=== PATIENT | male | born 1960 | race Caucasian/White ===

== ENCOUNTER 2018-05-30 09:43 | Day surgery (SDC) | payer OTHER ==
[~2018-05-30 09:43] MED LIST: ATORVASTATIN CA20 MG PO; ATORVASTATIN CA40 MG; AVAIR; COZAAR50 MG; COZAAR50 MG PO; LOPERAMIDE2 MG PO; OMEPRAZOLE20 MG PO; OMEPRAZOLE40 MG; SPIRIVA RESPIMAT4 G1 IH; [UNRECOGNIZED DRUG - OTHER] PO
[2018-05-30] MEDS ORDERED: PERCOCET 5-3251 EACH PO (14:09)
[2018-05-30] MEDS ORDERED: COLACE100 MG PO (14:09)
== END 2018-05-30 17:10 | disposition home or self-care (01) ==
LOC: CIR.AMB 09:43
DX: K60.3 Anal fistula (principal)

== ENCOUNTER 2019-04-03 07:26 | Day surgery (SDC) | payer OTHER ==
[~2019-04-03 07:26] MED LIST changes: +COLACE100 MG PO; +FLOVENT DISKUS50 MCG IH; +HORIZANT300 MG PO; +IMIPRAMINE HCL25 MG PO; +LOPERAMIDE2 M1 PO; +PERCOCET 5-3251 EACH PO; +VENTOLIN HFA18 GM IH
[2019-04-03] MEDS ORDERED: COLACE100 MG PO (12:27)
[2019-04-03] MEDS ORDERED: PERCOCET 5-3251 EACH PO (12:27)
== END 2019-04-03 16:29 | disposition home or self-care (01) ==
LOC: CIR.AMB 07:26
DX: K60.3 Anal fistula (principal)